=== PATIENT | male | born 1945 | race African-American/Black ===

== ENCOUNTER 2022-03-01 08:05 | Inpatient (IN) ==
[2022-03-01] MEDS ORDERED: SODIUM CHLORIDE 0.9% 500 ML IV STA (09:02)
[2022-03-01 10:28] LABS: Albumin 2.7 G/DL (3.4-5.0); Bilirubin,Total 1.2 MG/DL (0.20-1.00); Calcium 9.2 MG/DL (8.5-10.1); Osmolality,Calculated 275.5 MOS/KG (273-304); Potassium 4.5 MMOL/L (3.5-5.1); Total Protein 6.8 G/DL (6.4-8.2)
[2022-03-01 10:43] LABS: Basophils # 0.2 10*3/uL (0.0-0.2); Basophils % 0.1 % (0.0-0.8); Eosinophils # 0.1 10*3/uL (0.0-0.87); Hematocrit 32.7 VOL% (42.0-52.0); Hemoglobin 10.6 GM/DL (14.0-18.0); Immature Granulocytes % 0.2 %; Immature Granulocytes Absolute 0.72 #; Lymphocytes # 256.1 10*3/uL (1.4-4.0); Lymphocytes % 86.6 % (21.2-54.2); Mean Corpuscular HGB Conc 32.4 GM/DL (32-36); Mean Corpuscular Volume 88.9 FL (87-102); Mean Platelet Volume 10.6 FL (9.6-12.0); Monocytes % 11.1 % (1.7-12.7); NRBC # 0.06 10*3/uL; Platelet Count 189 T/CUMM (130-400); Red Blood Count 3.68 MC/CUMM (3.8-5.5); Red Cell Distribution Width 17.4 % (9.3-17.3)
[2022-03-01 10:49] LABS: White Blood Count 295.6 T/CUMM (4-12)
[2022-03-01 10:59] LABS: Mucus,Urine Few /LPF (Occasional)
[2022-03-01 11:03] LABS: Urine Appearance Clear (Clear); Urine Color Yellow (Yellow)
[2022-03-01 11:04] LABS: Glucose,Urine (UA) Negative (Negative); Ketones,Urine Negative (Negative); Protein,Urine 30 mg/dL (Negative)
[2022-03-01 11:05] LABS: Bilirubin,Urine Small mg/dL (Negative); Blood, Urine Negative (Negative); Nitrite,Urine Negative (Negative)
[2022-03-01] MEDS ORDERED: DEXAMETHASONE 4 MG TABLET PO STA (11:30)
[2022-03-01] MEDS ORDERED: DEXAMETHASONE 4 MG/1 ML VIAL IV STA (11:33)
[2022-03-01] MEDS ORDERED: ONDANSETRON 4 MG/2 ML VIAL IV PRN (11:34)
[2022-03-01] MEDS ORDERED: BISACODYL 5 MG TABLET PO PRN (11:34)
[2022-03-01] MEDS ORDERED: DEXAMETHASONE 10 MG/1 ML VIAL IV STA (11:48)
[2022-03-01] MEDS ORDERED: ENOXAPARIN 40 MG/0.4 ML SYRINGE SUBCUT SCH (12:00)
[2022-03-01 12:03] LABS: Lymphocytes 88 % (20-55); Platelet Estimate Adequate; Total Cells Counted 100
[2022-03-01 12:04] LABS: Atypical Lymphocytes 1+
[2022-03-01 12:05] LABS: Polychromasia Slight
[2022-03-01] MEDS: hydrALAZINE 20 MG/1 ML VIAL IV PRN ×2 (13:00→22:27)
[2022-03-01] MEDS: LACTATED RINGERS 1,000 ML IV SCH (13:00)
[2022-03-01] MEDS ORDERED: allopurinoL 300 MG TABLET PO ONE (15:30)
[2022-03-02] MEDS: LACTATED RINGERS 1,000 ML IV SCH ×2 (00:07→10:30)
[2022-03-02 05:44] LABS: Basophils # 0.7 10*3/uL (0.0-0.2); Basophils % 0.2 % (0.0-0.8); Hematocrit 29.8 VOL% (42.0-52.0); Hemoglobin 9.7 GM/DL (14.0-18.0); Immature Granulocytes % 0.4 %; Immature Granulocytes Absolute 1.19 #; Lymphocytes # 303.3 10*3/uL (1.4-4.0); Mean Corpuscular HGB Conc 32.6 GM/DL (32-36); Mean Corpuscular Volume 88.2 FL (87-102); Monocytes # 23.8 10*3/uL (0.11-0.8); Monocytes % 7.1 % (1.7-12.7); NRBC # 0.06 10*3/uL; Neutrophils % 2.3 % (38.7-73.9); Platelet Count 196 T/CUMM (130-400); Red Blood Count 3.38 MC/CUMM (3.8-5.5); Red Cell Distribution Width 16.6 % (9.3-17.3)
[2022-03-02 06:03] LABS: Albumin 2.5 G/DL (3.4-5.0); Osmolality,Calculated 274.8 MOS/KG (273-304); Potassium 5.8 MMOL/L (3.5-5.1); Total Protein 6.6 G/DL (6.4-8.2)
[2022-03-02 06:27] LABS: Atypical Lymphocytes Moderate; Lymphocytes 95 % (20-55); Total Cells Counted 100
[2022-03-02 06:28] LABS: Anisocytosis 1+; Smudge Cells Few; Target Cells Slight
[2022-03-02 06:29] LABS: Platelet Estimate Adequate; Polychromasia Slight
[2022-03-02] MEDS ORDERED: SODIUM POLYSTYRENE SULFATE 15 GM/60 ML BOTTLE PO ONE (08:30)
[2022-03-02] MEDS ORDERED: allopurinoL 100 MG TABLET PO SCH (09:00)
[2022-03-02] MEDS: amLODIPine 10 MG TABLET PO SCH (09:03)
[2022-03-02] MEDS: allopurinoL 300 MG TABLET PO SCH (09:04)
[2022-03-02] MEDS: SODIUM CHLORIDE 0.9% 1,000 ML IV SCH ×2 (09:36→20:03)
[2022-03-02] MEDS: cefTRIAXone 1,000 MG in SODIUM CHLORIDE 0.9% 100 ML IV SCH (10:54)
[2022-03-02] MEDS ORDERED: AZITHROMYCIN INJ 500 MG in SODIUM CHLORIDE 0.9% 250 ML IV SCH (11:00)
[2022-03-02] MEDS ORDERED: diphenhydrAMINE 50 MG/1 ML VIAL IV ONE (11:30)
[2022-03-02] MEDS ORDERED: DEXAMETHASONE INJ 40 MG in SODIUM CHLORIDE 0.9% 50 ML IV ONE (11:30)
[2022-03-02] MEDS ORDERED: FAMOTIDINE 20 MG TABLET PO ONE (11:30)
[2022-03-02] MEDS ORDERED: BENDAMUSTINE IV ONE (12:00)
[2022-03-02] MEDS ORDERED: SODIUM CHLORIDE 0.9% IV ONE ×2 (12:00→13:00)
[2022-03-02] MEDS ORDERED: hydrALAZINE 20 MG/1 ML VIAL IV PRN (12:01)
[2022-03-02] MEDS: ALBUTEROL/IPRATROPIUM 3 ML NEB RESP TX SCH ×2 (12:15→19:41)
[2022-03-02] MEDS ORDERED: RITUXIMAB ABBS IV ONE (13:00)
[2022-03-02 14:05] LABS: Hematocrit 28.4 VOL% (42.0-52.0); Hemoglobin 9.3 GM/DL (14.0-18.0)
[2022-03-02 18:01] LABS: Hematocrit 29.8 VOL% (42.0-52.0); Hemoglobin 9.9 GM/DL (14.0-18.0)
[2022-03-03] MEDS: ALBUTEROL/IPRATROPIUM 3 ML NEB RESP TX SCH ×4 (00:30→19:20)
[2022-03-03 01:27] LABS: Hematocrit 28.4 VOL% (42.0-52.0); Hemoglobin 9.5 GM/DL (14.0-18.0)
[2022-03-03] MEDS: SODIUM CHLORIDE 0.9% 1,000 ML IV SCH (05:06)
[2022-03-03 05:51] LABS: Basophils # 0.2 10*3/uL (0.0-0.2); Basophils % 0.1 % (0.0-0.8); Hematocrit 28.2 VOL% (42.0-52.0); Hemoglobin 9.3 GM/DL (14.0-18.0); Immature Granulocytes % 0.8 %; Immature Granulocytes Absolute 2.02 #; Lymphocytes # 224.6 10*3/uL (1.4-4.0); Lymphocytes % 87.5 % (21.2-54.2); Mean Corpuscular Volume 88.1 FL (87-102); Mean Platelet Volume 11.2 FL (9.6-12.0); Monocytes # 16.7 10*3/uL (0.11-0.8); Monocytes % 6.5 % (1.7-12.7); Neutrophils % 5.1 % (38.7-73.9); Platelet Count 101 T/CUMM (130-400); Red Cell Distribution Width 16.8 % (9.3-17.3)
[2022-03-03 05:53] LABS: White Blood Count 256.6 T/CUMM (4-12)
[2022-03-03 06:02] LABS: Albumin 2.3 G/DL (3.4-5.0); Bilirubin,Total 0.6 MG/DL (0.20-1.00); Total Protein 5.9 G/DL (6.4-8.2)
[2022-03-03 07:37] LABS: Anisocytosis Slight; Atypical Lymphocytes 1+; Lymphocytes 88 % (20-55); Macrocytosis 1+; Platelet Estimate Adequate; Smudge Cells 1+; Total Cells Counted 100
[2022-03-03 07:38] LABS: Target Cells 1+
[2022-03-03] MEDS: allopurinoL 300 MG TABLET PO SCH (08:43)
[2022-03-03] MEDS: amLODIPine 10 MG TABLET PO SCH (08:43)
[2022-03-03] MEDS: VALSARTAN 160 MG TABLET PO SCH ×3 (10:18→13:33)
[2022-03-03 11:45] LABS: Basophils # 0.1 10*3/uL (0.0-0.2); Hematocrit 28.9 VOL% (42.0-52.0); Hemoglobin 9.4 GM/DL (14.0-18.0); Immature Granulocytes % 0.6 %; Immature Granulocytes Absolute 1.49 #; Lymphocytes # 237.5 10*3/uL (1.4-4.0); Lymphocytes % 89.4 % (21.2-54.2); Mean Corpuscular HGB Conc 32.5 GM/DL (32-36); Mean Corpuscular Volume 87.3 FL (87-102); Mean Platelet Volume 10.9 FL (9.6-12.0); Monocytes # 15.6 10*3/uL (0.11-0.8); Monocytes % 5.9 % (1.7-12.7); NRBC # 0.26 10*3/uL; Neutrophils % 4.1 % (38.7-73.9); Platelet Count 125 T/CUMM (130-400); Red Blood Count 3.31 MC/CUMM (3.8-5.5); Red Cell Distribution Width 17.1 % (9.3-17.3)
[2022-03-03 11:47] LABS: White Blood Count 265.7 T/CUMM (4-12)
[2022-03-03 12:07] LABS: Atypical Lymphocytes 1+; Lymphocytes 89 % (20-55); Platelet Estimate Adequate; Smudge Cells 2+; Total Cells Counted 100
[2022-03-03] MEDS: cefTRIAXone 1,000 MG in SODIUM CHLORIDE 0.9% 100 ML IV SCH (12:07)
[2022-03-03 12:08] LABS: Anisocytosis 1+; Target Cells 1+
[2022-03-03 12:09] LABS: Macrocytosis 1+
[2022-03-03] MEDS: hydrALAZINE 25 MG TABLET PO SCH (20:36)
[2022-03-04] MEDS: ALBUTEROL/IPRATROPIUM 3 ML NEB RESP TX SCH ×4 (01:30→19:02)
[2022-03-04 04:59] LABS: Basophils # 0.3 10*3/uL (0.0-0.2); Basophils % 0.1 % (0.0-0.8); Hematocrit 27.3 VOL% (42.0-52.0); Hemoglobin 8.8 GM/DL (14.0-18.0); Immature Granulocytes % 0.4 %; Immature Granulocytes Absolute 1.28 #; Lymphocytes # 317.7 10*3/uL (1.4-4.0); Lymphocytes % 90.1 % (21.2-54.2); Mean Corpuscular HGB Conc 32.2 GM/DL (32-36); Mean Corpuscular Volume 87.2 FL (87-102); Mean Platelet Volume 10.5 FL (9.6-12.0); Monocytes # 25.7 10*3/uL (0.11-0.8); Monocytes % 7.3 % (1.7-12.7); NRBC # 0.18 10*3/uL; Neutrophils % 2.1 % (38.7-73.9); Platelet Count 144 T/CUMM (130-400); Red Blood Count 3.13 MC/CUMM (3.8-5.5); Red Cell Distribution Width 16.6 % (9.3-17.3)
[2022-03-04 05:02] LABS: White Blood Count 352.7 T/CUMM (4-12)
[2022-03-04 05:16] LABS: Albumin 2.2 G/DL (3.4-5.0); Bilirubin,Total 0.7 MG/DL (0.20-1.00); Calcium 7.6 MG/DL (8.5-10.1); Osmolality,Calculated 288.7 MOS/KG (273-304); Total Protein 5.7 G/DL (6.4-8.2)
[2022-03-04] MEDS: PANTOPRAZOLE 40 MG TABLET PO SCH (06:06)
[2022-03-04 06:31] LABS: Atypical Lymphocytes 2+; Lymphocytes 89 % (20-55); Platelet Estimate Adequate; Smudge Cells 2+; Total Cells Counted 100
[2022-03-04 06:32] LABS: Anisocytosis 1+; Macrocytosis 1+; Target Cells 1+
[2022-03-04] MEDS: VALSARTAN 160 MG TABLET PO SCH (09:09)
[2022-03-04] MEDS: amLODIPine 10 MG TABLET PO SCH (09:09)
[2022-03-04] MEDS: AZITHROMYCIN 250 MG TABLET PO SCH (09:10)
[2022-03-04] MEDS: hydrALAZINE 25 MG TABLET PO SCH ×2 (09:10→20:38)
[2022-03-04] MEDS: allopurinoL 300 MG TABLET PO SCH (09:10)
[2022-03-04] MEDS: POTASSIUM CHLORIDE 20 MEQ TABLET PO SCH ×2 (09:10→10:47)
[2022-03-04] MEDS: cefTRIAXone 1,000 MG in SODIUM CHLORIDE 0.9% 100 ML IV SCH (10:47)
[2022-03-05] MEDS ORDERED: ALBUTEROL/IPRATROPIUM 3 ML NEB RESP TX ONE (00:07)
[2022-03-05] MEDS: ALBUTEROL/IPRATROPIUM 3 ML NEB RESP TX SCH ×3 (00:16→14:34)
[2022-03-05 05:40] LABS: Basophils # 0.1 10*3/uL (0.0-0.2); Eosinophils # 0.1 10*3/uL (0.0-0.87); Hematocrit 29.9 VOL% (42.0-52.0); Hemoglobin 9.9 GM/DL (14.0-18.0); Immature Granulocytes % 0.2 %; Immature Granulocytes Absolute 0.79 #; Lymphocytes # 333.3 10*3/uL (1.4-4.0); Lymphocytes % 91.8 % (21.2-54.2); Mean Corpuscular HGB Conc 33.1 GM/DL (32-36); Mean Corpuscular Volume 86.9 FL (87-102); Mean Platelet Volume 10.6 FL (9.6-12.0); Monocytes # 23.8 10*3/uL (0.11-0.8); Monocytes % 6.5 % (1.7-12.7); NRBC # 0.11 10*3/uL; Neutrophils % 1.5 % (38.7-73.9); Platelet Count 166 T/CUMM (130-400); Red Blood Count 3.44 MC/CUMM (3.8-5.5); Red Cell Distribution Width 17.2 % (9.3-17.3)
[2022-03-05 05:46] LABS: White Blood Count 363.1 T/CUMM (4-12)
[2022-03-05] MEDS: PANTOPRAZOLE 40 MG TABLET PO SCH (06:02)
[2022-03-05 06:04] LABS: Albumin 2.7 G/DL (3.4-5.0); Bilirubin,Total 0.9 MG/DL (0.20-1.00); Calcium 9.1 MG/DL (8.5-10.1); Osmolality,Calculated 278.3 MOS/KG (273-304); Potassium 4.1 MMOL/L (3.5-5.1); Total Protein 6.5 G/DL (6.4-8.2)
[2022-03-05 06:17] LABS: Lymphocytes 90 % (20-55); Platelet Estimate Normal; Total Cells Counted 100
[2022-03-05 06:18] LABS: Hypochromia Slight; Smudge Cells Few
[2022-03-05] MEDS: VALSARTAN 160 MG TABLET PO SCH (09:36)
[2022-03-05] MEDS: AZITHROMYCIN 250 MG TABLET PO SCH (09:36)
[2022-03-05] MEDS: hydrALAZINE 25 MG TABLET PO SCH (09:37)
[2022-03-05] MEDS: amLODIPine 10 MG TABLET PO SCH (09:37)
[2022-03-05] MEDS ORDERED: RITUXIMAB ABBS IV ONE (10:30)
[2022-03-05] MEDS ORDERED: SODIUM CHLORIDE 0.9% IV ONE (10:30)
[2022-03-05] MEDS: cefTRIAXone 1,000 MG in SODIUM CHLORIDE 0.9% 100 ML IV SCH (11:44)
[2022-03-05 13:14] VITALS: BP 152/69
== END 2022-03-05 16:07 | disposition home or self-care (01) | DRG 840 ==
LOC: N.EDINP 08:05 → N.ED 08:05 → OBSVTOIN 11:34 → SUATTDRO 11:34 → N.TELEN 14:57 → N.TELES 16:17 → N.TELEN 16:19 → SUATTDRO 03-03 09:05
PROVIDERS: ADMIT Internal Medicine; ATTEND Internal Medicine Geriatric Medicine